=== PATIENT | male | born 1975 | race Caucasian/White ===

== ENCOUNTER → 2016-03-30 | Outpatient (CLI) | payer BC ==
[~2016-03-30] MED LIST: DEPO-TESTOS200 MG/M1 IM; ZOVIRAX 200MG200 MG PO
[2016-03-30 09:37] LABS: BASO % 0.8 % (0.0-2.0); EOS # 0.1 (0.0-0.7); EOS % 1.9 % (0-4.0); GRAN # 2.2 (1.4-6.5); GRAN % 45.8 % (42.2-75.2); LYMPH # 1.9 (1.2-3.4); LYMPH % 38.8 % (20.0-51.0); MEAN CELL VOLUME 80 fl (80.0-100.0); MEAN CORPUSCULAR HGB CONC 33 g/dl (33.0-37.0); MEAN PLATELET VOLUME 10.1 fl (7.4-10.4); MONO # 0.6 (0.1-0.6); MONO % 12.7 % (1.7-9.3); PLATELET COUNT 208 K/mm3 (130-400); RED BLOOD COUNT 7.19 M/mm3 (4.20-5.60); REDCELL DISTRIBUTION WIDTH-CV 14.5 % (11.5-14.5); WHITE BLOOD COUNT 4.8 K/mm3 (4.8-10.8)
[2016-03-30 09:43] LABS: HEMATOCRIT 57.3 % (42.0-52.0); HEMOGLOBIN 18.6 g/dl (13.5-18.0); MEAN CORPUSCULAR HEMOGLOBIN 26 pg (27.0-31.0)
[2016-03-30 09:50] LABS: ADJUSTED CALCIUM 8.9 mg/dL (8.4-10.2); ALBUMIN 4.4 gm/dL (3.5-5.0); BILIRUBIN,TOTAL 0.9 mg/dL (0.0-1.0); CALCIUM 9.2 mg/dL (8.4-10.2); CREATININE, serum 1.1 mg/dL (0.66-1.25); POTASSIUM 4.4 mmol/L (3.4-5.0); TOTAL PROTEIN 7.3 gm/dL (6.4-8.2)
[2016-03-30 10:19] LABS: THYROID STIMULATING HORMONE 1.72 uIU/mL (0.465-4.680)
== END ==
LOC: COL.LAB 09:13
PROVIDERS: Medical Genetics Clinical Genetics (M.D.)
DX: E29.1 Testicular hypofunction (principal)

== ENCOUNTER 2016-05-01 00:40 | Emergency (ER) | payer BC ==
[~2016-05-01] VITALS: Ht 182.9 cm; Wt 106.8 kg
[2016-05-01 00:43] VITALS: TEMP 98.2
[2016-05-01] MEDS ORDERED: DEPO-TESTOS200 MG/M1 IM (00:47)
[2016-05-01] MEDS ORDERED: ZOVIRAX 200MG200 MG PO (00:48)
[2016-05-01 01:38] LABS: INFLUENZA B NEGATIVE
[2016-05-01 02:42] VITALS: BP 113/65; PULSE 89
== END 2016-05-01 03:15 | disposition home or self-care (01) ==
LOC: COL.ER 00:40
PROVIDERS: Nurse Practitioner
DX: J06.9 Acute upper respiratory infection, unspecified (principal); F17.220 Nicotine dependence, chewing tobacco, uncomplicated

== ENCOUNTER → 2017-03-22 | Outpatient (REF) | LOC: ZLAB.WCH 18:03 | DX: Z01.89 Encounter for other specified special examinations (principal) | CPT/HCPCS: G0103 ==

== ENCOUNTER → 2017-03-29 | Outpatient (CLI) | payer BC | LOC: COL.LAB 11:06 | DX: E29.1 Testicular hypofunction (principal) ==